=== PATIENT | female | born 1980 | race African-American/Black ===

== ENCOUNTER 2017-03-30 14:02 | Emergency (ER) | payer MEDICAID ==
[~2017-03-30] VITALS: Ht 180.3 cm; Wt 98.8 kg
[~2017-03-30 14:02] MED LIST: DIVA500T4 PO; HYDR-3144 PO; HYDR1TAB12 PO; OMEP-110 PO; ONDA8TAB12 PO; SUMA25TA3 PO; SUMA50TA3 PO; ZOFRAN PRN; ZOLP-413 PO
[2017-03-30 14:37] VITALS: BP 116/82
== END 2017-03-30 15:35 | disposition home or self-care (01) ==
LOC: ED 15:00
DX: S50.861A Insect bite (nonvenomous) of right forearm, initial encounter (principal); J45.909 Unspecified asthma, uncomplicated; G43.909 Migraine, unspecified, not intractable, without status migrainosus
CPT/HCPCS: 99283

== ENCOUNTER 2017-04-29 17:57 | Emergency (ER) | payer MEDICAID ==
[~2017-04-29] VITALS: Ht 180.3 cm; Wt 97.2 kg
[2017-04-29 17:58] VITALS: BP 122/80
== END 2017-04-29 19:36 | disposition home or self-care (01) ==
LOC: ED 18:41
DX: S83.411A Sprain of medial collateral ligament of right knee, initial encounter (principal); X58.XXXA Exposure to other specified factors, initial encounter; Y93.89 Activity, other specified; Y92.89 Other specified places as the place of occurrence of the external cause; Y99.8 Other external cause status

== ENCOUNTER 2017-05-14 23:39 | Emergency (ER) | payer MEDICAID ==
[2017-05-15] MEDS ORDERED: SODIUM CHLORIDE FLUSH 10ML SYR IVF ONE (00:30)
[2017-05-15] MEDS ORDERED: ASPIRIN 81 MG TABLET CHEW PO ONE (00:30)
[2017-05-15] MEDS ORDERED: MAALOX/HYOSCYAMINE/LIDOCAINE 45 ML BOTTLE ONE (00:34)
[2017-05-15] MEDS ORDERED: ASPIRIN 81 MG TABLET CHEW ONE (00:37)
[2017-05-15] MEDS ORDERED: MAALOX/HYOSCYAMINE/LIDOCAINE 45 ML BOTTLE PO ONE (01:00)
[2017-05-15 01:09] LABS: BLOOD UREA NITROGEN 9 mg/dL (7-18)
[2017-05-15 01:14] LABS: IS PT STATUS REG ER OR PRE ER? YES
[2017-05-15] MEDS ORDERED: LORazepam 1MG TABLET PO ONE (02:00)
[2017-05-15] MEDS ORDERED: LORazepam 1MG TABLET ONE (02:14)
[2017-05-15 02:54] VITALS: BP 105/73
== END 2017-05-15 02:55 | disposition home or self-care (01) ==
LOC: ED 23:59
DX: R07.89 Other chest pain (principal); K21.9 Gastro-esophageal reflux disease without esophagitis; M79.7 Fibromyalgia; Z79.82 Long term (current) use of aspirin
CPT/HCPCS: 36415; 71010; 80048; 82040; 83880; 84484; 85025; 85379; 85610; 85730; 93005; 99285

== ENCOUNTER 2017-10-28 17:38 | Emergency (ER) | payer MEDICAID ==
[~2017-10-28] VITALS: Ht 152.4 cm; Wt 93.5 kg
[~2017-10-28 17:38] MED LIST changes: -HYDR-3144 PO; +HYDR-3245 PO
[2017-10-28 17:50] VITALS: BP 106/68
[2017-10-28] MEDS ORDERED: KETOROLAC 30 MG/1 ML ONE (18:52)
[2017-10-28] MEDS ORDERED: KETOROLAC 30 MG/1 ML IM ONE (19:00)
== END 2017-10-28 19:51 | disposition home or self-care (01) ==
LOC: ED 19:15
DX: G89.11 Acute pain due to trauma (principal); M25.512 Pain in left shoulder; M25.522 Pain in left elbow; G43.909 Migraine, unspecified, not intractable, without status migrainosus; J45.909 Unspecified asthma, uncomplicated; Z91.040 Latex allergy status; W01.0XXA Fall on same level from slipping, tripping and stumbling without subsequent striking against object, initial encounter; Y93.01 Activity, walking, marching and hiking; Y99.8 Other external cause status; Y92.098 Other place in other non-institutional residence as the place of occurrence of the external cause
CPT/HCPCS: 73030; 73080; 96372; 99284; J1885

== ENCOUNTER 2017-11-07 15:09 | Emergency (ER) | payer MEDICAID ==
[~2017-11-07] VITALS: Ht 177.8 cm; Wt 97.0 kg
[2017-11-07 15:13] VITALS: BP 108/74
[2017-11-07] MEDS ORDERED: KETOROLAC 30 MG/1 ML ONE (16:56)
[2017-11-07] MEDS ORDERED: KETOROLAC 30 MG/1 ML IVPush ONE (17:00)
[2017-11-07 17:34] LABS: BASOPHILS # (AUTO) 0.05 x10^3/uL (0-0.1); BASOPHILS % (AUTO) 1 % (0-1); EOSINOPHILS # (AUTO) 0.06 x10^3/uL (0-0.4); EOSINOPHILS % (AUTO) 1 % (1-7); LYMPHOCYTES # (AUTO) 2.19 x10^3/uL (1-3.4); LYMPHOCYTES % (AUTO) 32 % (22-44); MD NO; MEAN CORPUSCULAR HEMOGLOBIN 30.3 pg (27.0-34.8); MEAN CORPUSCULAR HGB CONC 32.1 g/dL (32.4-35.8); MEAN CORPUSCULAR VOLUME 94.6 fL (80-100); MONOCYTES # (AUTO) 0.41 x10^3/uL (0.2-0.8); MONOCYTES % (AUTO) 6 % (2-9); NEUTROPHILS # (AUTO) 4.25 x10^3/uL (1.8-6.8); NEUTROPHILS % (AUTO) 61 % (42-75); PLATELET COUNT 329 x10^3/uL (130-400); RED BLOOD COUNT 4.42 x10^6/uL (3.82-5.3); RED CELL DISTRIBUTION WIDTH 13.4 % (9.6-15.2)
[2017-11-07 17:45] LABS: D-DIMER 0.27 ug/mlFEU (0.00-0.52); INTERNATIONAL NORMALIZED RATIO 0.99 (0.93-1.1); PROTHROMBIN TIME 10.3 Seconds (9.6-11.5)
[2017-11-07 17:47] LABS: ALBUMIN 3.7 g/dL (3.4-5.0); ANION GAP 4 mmol/L (5-15); CALCIUM 9.1 mg/dL (8.5-10.1); CHLORIDE 110 mmol/L (98-107)
[2017-11-07 17:52] LABS: CREATININE 0.64 mg/dL (0.55-1.02); TROPONIN I < 0.015 ng/mL (0.000-0.045)
== END 2017-11-07 19:01 | disposition home or self-care (01) ==
LOC: ED 18:45
DX: M94.0 Chondrocostal junction syndrome [Tietze] (principal); G43.909 Migraine, unspecified, not intractable, without status migrainosus; J45.909 Unspecified asthma, uncomplicated
CPT/HCPCS: 36415; 71045; 80048; 82040; 84484; 85025; 85379; 85610; 85730; 93005; 96374; 99285; J1885

== ENCOUNTER 2018-10-23 14:59 | Emergency (ER) | payer MEDICAID ==
[~2018-10-23] VITALS: Ht 175.3 cm; Wt 98.0 kg
[2018-10-23 15:06] VITALS: BP 102/74
[2018-10-23] MEDS ORDERED: KETOROLAC 30 MG/1 ML IM ONE (15:30)
[2018-10-23] MEDS ORDERED: KETOROLAC 30 MG/1 ML ONE (15:50)
== END 2018-10-23 16:08 | disposition home or self-care (01) ==
LOC: ED 15:50
DX: S90.32XA Contusion of left foot, initial encounter (principal); X58.XXXA Exposure to other specified factors, initial encounter; J45.909 Unspecified asthma, uncomplicated; F17.200 Nicotine dependence, unspecified, uncomplicated; G43.909 Migraine, unspecified, not intractable, without status migrainosus; Y93.89 Activity, other specified; Y92.009 Unspecified place in unspecified non-institutional (private) residence as the place of occurrence of the external cause; Y99.8 Other external cause status
CPT/HCPCS: 73630; 96372; 99283; J1885